=== PATIENT | female | born 2005 | race Caucasian/White ===

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

== ENCOUNTER 2025-02-23 14:36 | Outpatient (CLI) | payer MEDICAID | END 2025-02-23 17:00 | disposition home or self-care (01) | LOC: LAB 14:36 | PROVIDERS: ATTEND Nurse Practitioner Family | DX: E04.9 Nontoxic goiter, unspecified (principal) | CPT/HCPCS: 36415; 84439; 84443 ==